=== PATIENT | female | born 1980 | race Caucasian/White ===

== ENCOUNTER 2020-10-14 09:03 | Outpatient (CLI) | payer OTHER, SELFPAY ==
--- NOTE | ~2020-10-14 | MMUS_ITS ---
EXAMINATION: MM diagnostic ese BI w go, US breast BI limited HISTORY: Palpable lumps in the outer right breast at the 9:00 location and upper left breast at the 1 2:00 location TECHNIQUE: Craniocaudal, mediolateral, and mediolateral oblique 3-D tomosynthesis images of the breas ts were performed and synthetic 2-D images were generated. CAD analysis was submitted and interpreted . High resolution limited bilateral breast ultrasound was performed. COMPARISON: 05/19/2010 BREAST PARENCHYMAL COMPOSITION: The breasts are extremely dense, which lowers the sensitivity of mamm ography. FINDINGS: MAMMOGRAPHIC FINDINGS: Right breast: There is a 7 mm mass of the right breast at the 10:00 location 4 cm from the nipple cor responding to the palpable abnormality of concern which appears to be within the skin. Left breast: There is subtle focal asymmetry in the upper outer quadrant of the left breast but other nickerson no mammographic correlate is identified for the reported palpable abnormality of concern. ULTRASOUND: Right breast: There is an 8 mm x 5 mm oval, circumscribed, anechoic mass with thin tract to the skin surface at the 10:00 location 5 cm from the nipple in the right breast corresponding to the palpable abnormality of concern, consistent with a sebaceous cyst. Left breast: There is a 12 mm x 9 mm oval, circumscribed, parallel, hypoechoic mass with mixed commercial relief driver ior features and internal vascularity at the 12:30 location 5 cm from the nipple in the area of palpa ble abnormality. There are adjacent 10 mm cyst is noted. IMPRESSION: 1. Indeterminate sonographically detected left breast mass corresponding to the palpable abnormality of concern. 2. Ultrasound-guided biopsy is recommended. BI-RADS category 4, suspicious findings. Reviewed, dictated and finalized at location A. IMPRESSION: 1. Indeterminate sonographically detected left breast mass corresponding to the palpable abnormality of concern. 2. Ultrasound-guided biopsy is recommended. BI-RADS category 4, suspicious findings.
== END 2020-10-14 09:04 ==
PROVIDERS: Visit Provider Nurse Practitioner Obstetrics & Gynecology
DX: N63.0 Unspecified lump in unspecified breast (principal); R92.8 Other abnormal and inconclusive findings on diagnostic imaging of breast
CPT/HCPCS: 76642; 77062; 77066; G0279

== ENCOUNTER 2021-06-10 11:02 | Outpatient (CLI) | payer OTHER, SELFPAY ==
--- NOTE | ~2021-06-10 | XR_ITS ---
EXAMINATION: XR chest 2V DATE: 06/10/2021 11:19 INDICATION: Cough. Shortness of breath. TECHNIQUE: Frontal and lateral views of the chest were obtained. COMPARISON: Chest single view 07/05/2015 FINDINGS: The chest demonstrates clear lungs without pneumonia, pleural effusion, or pneumothorax. Th e heart size is normal. IMPRESSION: 1. No acute cardiopulmonary disease. Reviewed, dictated and finalized at location A. 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
== END 2021-06-10 11:03 | disposition home or self-care (01) ==
LOC: CHSIMG 11:05
PROVIDERS: PCP Family Medicine; Visit Provider Nurse Practitioner Family
DX: R05.9 Cough, unspecified (principal); R06.2 Wheezing
CPT/HCPCS: 71046

== ENCOUNTER 2023-02-08 12:54 | Outpatient (CLI) | payer OTHER, SELFPAY ==
--- NOTE | ~2023-02-08 | XR_ITS ---
EXAMINATION: XR hand BI arthritis min 3V DATE: 02/08/2023 13:28 INDICATION: Bilateral hand pain TECHNIQUE: Posteroanterior, lateral, and oblique views of the left and of the right hands as well as a ballcatchers view of both hands were obtained. COMPARISON: None. FINDINGS: Bone alignment is normal. There is no fracture. The joint spaces are normal. No erosions are identifi ed. The soft tissues are unremarkable. IMPRESSION: 1. Unremarkable hand radiographs. Reviewed, dictated and finalized at location B. 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
--- NOTE | ~2023-02-08 | XR_ITS ---
EXAMINATION: XR elbow RT min 3V INDICATION: Right elbow pain TECHNIQUE: Four views of the right elbow are obtained. COMPARISON: None available FINDINGS: No fracture, dislocation, or subluxation. The bones, soft tissues, and joint spaces are nor mal. IMPRESSION: 1. No acute osseous abnormality. Reviewed, dictated and finalized at location B. DING INSPECTOR
[2023-02-08 13:11] LABS: Basophils Absolute Auto 0.03 K/mm3 (0.00-0.10); Basophils Percent Auto 0.6 % (0.0-1.0); Eosinophils Absolute Auto 0.08 K/mm3 (0.02-0.50); Eosinophils Percent Auto 1.5 % (1.0-6.0); Hematocrit 39.9 % (35.0-49.0); Hemoglobin 13.6 g/dL (12.0-15.0); Immature Granulocyte Absolute 0.01 K/mm3 (0.00-0.00); Immature Granulocyte Percent A 0.2 % (0.0-0.0); Lymphocytes Absolute Auto 1.64 K/mm3 (1.10-4.50); Lymphocytes Percent Auto 30.8 % (18.0-42.0); Mean Corpuscular HGB Conc 34.1 g/dL (32.0-36.0); Mean Corpuscular Hemoglobin 32.5 pg (27.0-31.0); Mean Corpuscular Volume 95.5 fL (78.0-102.0); Monocytes Absolute Auto 0.45 K/mm3 (0.10-0.90); Monocytes Percent Auto 8.5 % (2.0-11.0); Neutrophils Absolute Auto 3.1 K/mm3 (1.7-7.2); Neutrophils Percent Auto 58.4 % (50.0-70.0); Platelet Count Result 263 K/mm3 (150-420); Red Blood Count 4.18 M/mm3 (4.20-5.40); Red Cell Distribution Width 11.8 % (11.6-14.4); White Blood Count 5.3 K/mm3 (4.8-10.8)
[2023-02-08 13:38] LABS: Alanine Aminotransferase 26 U/L (14-59); Alkaline Phosphatase 69 U/L (46-116); Anion Gap 10 mmol/L (8-16); Aspartate Amino Transferase 15 U/L (15-37); Bilirubin,Total 0.7 mg/dL (0.00-1.00); Blood Urea Nitrogen 13 mg/dL (7-18); Calcium 9.4 mg/dL (8.5-10.1); Carbon Dioxide 28 mmol/L (21-32); Chloride 103 mmol/L (98-108); Cholesterol 161 mg/dL (0-200); Estimated Glomerular Filt Rate > 60; Glucose 90 mg/dL (70-99); HDL Direct 67 mg/dL (40-60); LDL Cholesterol Calculated 78 mg/dL (<130); Osmolality Calculated 292 mOsm/kg (285-295); Sodium 141 mmol/L (136-145); Total Protein 7.1 g/dL (6.4-8.2); Triglycerides 81 mg/dL (0-150)
[2023-02-08 13:44] LABS: CRP < 0.5 mg/dL (0.0-0.9)
[2023-02-08 13:46] LABS: Rheumatoid Factor Screen Negative (Negative)
[2023-02-13 09:40] LABS: ANA Cascade Screen Negative (Negative)
== END 2023-02-08 12:55 | disposition home or self-care (01) ==
LOC: CHSLAB 12:56
PROVIDERS: PCP Family Medicine; Visit Provider Family Medicine
DX: Z00.00 Encounter for general adult medical examination without abnormal findings (principal); M79.642 Pain in left hand; M79.641 Pain in right hand
CPT/HCPCS: 36415; 73080; 73130; 80053; 80061; 83516; 85025; 86038; 86140; 86225; 86235; 86430

== ENCOUNTER 2023-03-01 07:59 | Outpatient (RCR) | payer OTHER, SELFPAY ==
--- NOTE | 2023-03-01 09:43 | OPREHPOC ---
Outpatient Therapy Plan of Care This is a Multidisciplinary Plan of Care that may contain components documented by all disciplines (PT, OT, and ST.) PT Problem 1 PT Problem #1 Knowledge Deficit PT Goal 1 Goal 1. independent and compliant with HEP Target Visit 4 PT Problem 2 PT Problem #2 Impaired Range of Motion PT Goal 1 Goal 1. -5 degrees from 0 or better R elbow active extension 2. improve L hamstrings flexibility to 15 degrees or less from 0 per the 90/90 test. Target Visit 8 PT Problem 3 PT Problem #3 Impaired Strength PT Goal 1 Goal 1. 5/5 R elbow flexion without pain 2. 5/5 L knee extension without pain Target Visit 8 PT Problem 4 PT Problem #4 Impaired Functional Mobil PT Goal 1 Goal 1. patient to perform elbow fleixon lifting exercises with supination without pain/sypmtoms in the R elbow 2. patient to perform deep squat and L leg back lunges without pain in the L knee 3. patient to return to full workout routine without stopping due to elbow or knee pain 4. QD to display 10% or less functional deficits Target Visit 8 PT Problem 5 PT Problem #5 Pain PT Goal 1 Goal 1. 1/10 or less R elbow pain at worst 2. 1/10 or less L knee pain at worst
--- NOTE | 2023-03-01 09:43 | PTOPEVAL1 ---
Assessment and note entered by JT File, PT Evaluation Information Assessment Status Evaluation Diagnosis pain in the R elbow, L knee joey Subjective Information patient reports she hyperextended the elbow back in undergrad. she reports she has always had some pain in the elbow from this incident. she reportsmore recently it has been flared up since she began working out. she reports pushups and lifting will hurt the back/outside of the elbow. she reports writing does not bother the elbow. she is R handed. she reports the arm hurts the worst with supination. she reports the pain will come on with activity, but then go away immediately. she reports tricep exercises do not bother her, but bicpes exercises will bother the elbow more ( especially in supination). as for her L knee, she reports she tore the ACL in the past. 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 she reports off and on it will bother her. she reports deep flexion bothers the L knee. she reports lunges with the L knee behind her will bother her. she reports ther back of the L knee bothers her along the hamstrings tendons. Reported Pain Level Pain Score 0: Self Report Assessment PT Clinical Summary mrs. mason is a 43 yo woman who presents to skilled PT for evaluation and treatment of R elbow pain. she presents with decreased R elbow extension, pain with elbow flexion and supination (especially eccentric loading), and tenderness to palpation of the postero-lateral lateral epicondyle. she also presents with distal biceps femoris tendinopathy. she would benefit from continued skilled PT to address her R elbow and L hamstrings symptoms to return to her prior level functional activities/quality of life, includihng return to normal exercise routine. Plan of Care Interventions Electrical Stimulation,Hot Pack/Cold Pack,Manual Therapy,Neuro Re-education,Patient/Caregiver Educati,Therapeutic Activities,Therapeutic Exercise PT Services Indicated Yes Treatment Frequency and 2x weekly for 8 visits Duration These treatments will address the objective and functional deficits as defined above. The patient will be advanced safely and appropriately in order for the patient to progress towards his/her prior level of function. Additional exercises will be introduced and as well as a comprehensive home exercise program upon discharge, if nee
== END 2023-03-08 23:59 | disposition home or self-care (01) ==
LOC: CHSPT 07:59
PROVIDERS: PCP Family Medicine; Visit Provider Family Medicine
DX: M25.521 Pain in right elbow (principal)
CPT/HCPCS: 97014; 97110; 97140; 97161; G0283

== ENCOUNTER 2024-05-30 08:58 | Outpatient (CLI) | payer OTHER, SELFPAY | END 2024-05-30 08:59 | disposition home or self-care (01) | LOC: MICIMG 09:00 | PROVIDERS: PCP Student in an Organized Health Care Education/Training Program; Visit Provider Student in an Organized Health Care Education/Training Program | DX: N63.10 Unspecified lump in the right breast, unspecified quadrant (principal); R92.8 Other abnormal and inconclusive findings on diagnostic imaging of breast | CPT/HCPCS: 76641; 77062; 77066; G0279 ==